=== PATIENT | male | born 1950 | race Caucasian/White ===

== ENCOUNTER → 2023-11-30 07:37 | Outpatient (REF) | payer MEDICARE, SELFPAY | LOC: RAD 07:37 | PROVIDERS: ATTENDING PHYSICIAN Surgery Vascular Surgery; FAMILY PHYSICIAN Family Medicine | DX: I71.43 Infrarenal abdominal aortic aneurysm, without rupture (principal) | CPT/HCPCS: 74174; Q9967 ==